=== PATIENT | female | born 1995 | race Caucasian/White ===

== ENCOUNTER 2018-02-22 17:01 | Inpatient (IN) | payer BC ==
[~2018-02-22 17:01] MED LIST: BUPIVACAINE 0.75%/DEXT (SPINAL) 2 ML INJ; OXYTOCIN 30 UNITS/LR 500 ML BAG IV
[2018-02-22] MEDS ORDERED: CEFAZOLIN 2 GM/50 ML (PMX) 50 ML IVPB (17:30)
[2018-02-22] MEDS ORDERED: OXYTOCIN 30 UNITS/LR 500 ML IV ×4 (17:30→21:30)
[2018-02-22] MEDS ORDERED: METHYLERGONOVINE 0.2 MG INJ IM ×2 (17:30)
[2018-02-22] MEDS ORDERED: CARBOPROST 250 MCG INJ IM ×2 (17:30→21:30)
[2018-02-22] MEDS: LACTATED RINGER'S 1,000 ML IV (17:30)
[2018-02-22] MEDS ORDERED: MISOPROSTOL 200 MCG TAB PR ×2 (17:30→21:30)
[2018-02-22 18:20] LABS: ADD MAN DIFF? NO
[2018-02-22 18:21] LABS: BASOPHILS % 0.2 % (0.0-2.0); EOSINOPHILS % 0.4 % (0.0-7.0); HEMOGLOBIN 8.3 g/dl (12.0-16.0); LYMPHOCYTES # 1.8 10^3/ul (0.8-2.9); LYMPHOCYTES % 21.6 % (15.0-51.0); MEAN CORPUSCULAR HEMOGLOBIN 28.1 pg (29.0-33.0); MEAN CORPUSCULAR HGB CONC 31.9 g/dl (32.0-37.0); MEAN CORPUSCULAR VOLUME 88.1 fl (82.0-101.0); MEAN PLATELET VOLUME 11.6 fl (7.4-10.4); MONOCYTE # 0.7 10^3/ul (0.3-0.9); MONOCYTES % 8.6 % (0.0-11.0); NEUTROPHIL # 5.6 10^3/ul (1.6-7.5); NEUTROPHILS % 68.8 % (39.0-77.0); PLATELET COUNT 158 10^3/UL (140-415); RED BLOOD COUNT 2.95 10^6/ul (4.20-5.40); RED CELL DISTRIBUTION WIDTH 13.9 % (11.5-14.5)
[2018-02-22 18:21] LABS: WHITE BLOOD COUNT 8.1 10^3/ul (4.8-10.8)
[2018-02-22 18:40] LABS: INR 0.95; PROTIME 12.8 Sec (11.9-14.9)
[2018-02-22 18:41] LABS: PARTIAL THROMBOPLASTIN TIME 25.1 Sec (23.0-35.0)
[2018-02-22] MEDS ORDERED: morphine SULFATE/PF (10 MG/10 ML) INJ (19:30)
[2018-02-22] MEDS ORDERED: FENTAnyl 50 MCG/ML VIAL (19:30)
[2018-02-22 19:34] LABS: RAPID PLASMA REAGIN NONREACTIVE (NR)
[2018-02-22] MEDS ORDERED: DEXAMETHASONE 4 MG/ML 1 ML INJ (19:34)
[2018-02-22] MEDS ORDERED: PHENYLephrine (100 MCG/ML) 5ML SYG (19:34)
[2018-02-22] MEDS ORDERED: ONDANSETRON 4 MG INJ (19:34)
[2018-02-22] MEDS ORDERED: OXYTOCIN 10 UNIT INJ (20:06)
[2018-02-22] MEDS ORDERED: DIPHENHYDRAMINE 50 MG INJ (20:23)
[2018-02-22] MEDS ORDERED: NALOXONE (0.4 MG/ML) INJ IV (20:30)
[2018-02-22] MEDS ORDERED: ZOLPIDEM 5 MG TAB PO (20:30)
[2018-02-22] MEDS ORDERED: HYDROmorphONE 0.5 MG/0.5 ML SYG IV (20:30)
[2018-02-22] MEDS ORDERED: ONDANSETRON 4 MG INJ IV (20:30)
[2018-02-22] MEDS: OXYTOCIN 30 UNITS/LR 500 ML IV (21:41)
[2018-02-22 21:54] LABS: HEPATITIS B SURFACE ANTIGEN NEGATIVE (NEGATIVE)
[2018-02-22] MEDS: KETOROLAC 30 MG INJ IV (22:30)
[2018-02-22] MEDS: DIPHENHYDRAMINE 50 MG INJ IV (22:30)
[2018-02-23] MEDS: HYDROmorphONE 0.5 MG/0.5 ML SYG IV (00:27)
[2018-02-23] MEDS: LACTATED RINGER'S 1,000 ML IV ×3 (03:36→14:26)
[2018-02-23] MEDS: PROMETHAZINE 25 MG TAB PO (03:37)
[2018-02-23] MEDS: ACETAMINOPHEN 500 MG TAB PO (03:38)
[2018-02-23] MEDS: KETOROLAC 30 MG INJ IV ×3 (08:31→20:11)
[2018-02-23] MEDS: LABETALOL 100 MG TAB PO (09:00)
[2018-02-23 09:04] LABS: ADD MAN DIFF? NO
[2018-02-23 09:09] LABS: HEMATOCRIT 25.8 % (37.0-47.0); HEMOGLOBIN 8.3 g/dl (12.0-16.0); LYMPHOCYTES % 7.5 % (15.0-51.0); MEAN CORPUSCULAR HEMOGLOBIN 28.3 pg (29.0-33.0); MEAN CORPUSCULAR HGB CONC 32.2 g/dl (32.0-37.0); MEAN CORPUSCULAR VOLUME 88.1 fl (82.0-101.0); MEAN PLATELET VOLUME 12.5 fl (7.4-10.4); MONOCYTE # 0.8 10^3/ul (0.3-0.9); MONOCYTES % 5.8 % (0.0-11.0); NEUTROPHIL # 11.7 10^3/ul (1.6-7.5); NEUTROPHILS % 86.2 % (39.0-77.0); PLATELET COUNT 187 10^3/UL (140-415); RED BLOOD COUNT 2.93 10^6/ul (4.20-5.40); RED CELL DISTRIBUTION WIDTH 13.7 % (11.5-14.5)
[2018-02-23 09:09] LABS: WHITE BLOOD COUNT 13.5 10^3/ul (4.8-10.8)
[2018-02-23] MEDS: LANOLIN 7 GM TUBE TOP (18:14)
[2018-02-24] MEDS: IBUPROFEN 600 MG TAB PO ×5 (00:32→23:53)
[2018-02-24] MEDS: HYDROCODONE/APAP (5/325) TAB PO ×3 (06:05→20:04)
[2018-02-24] MEDS: LABETALOL 100 MG TAB PO (09:00)
[2018-02-24] MEDS: HYDROCODONE/APAP (7.5/325) TAB PO ×2 (20:00→23:54)
[2018-02-24] MEDS: DOCUSATE SODIUM 100 MG CAP PO (20:49)
[2018-02-25] MEDS: HYDROCODONE/APAP (7.5/325) TAB PO ×3 (04:07→11:20)
[2018-02-25] MEDS: IBUPROFEN 600 MG TAB PO ×2 (06:13→11:20)
[2018-02-25] MEDS: DOCUSATE SODIUM 100 MG CAP PO (08:40)
[2018-02-25] MEDS: LABETALOL 100 MG TAB PO (08:41)
== END 2018-02-25 14:47 | disposition home or self-care (01) | DRG 786 ==
LOC: L-D 17:01 → PP1 23:36
PROVIDERS: Obstetrics & Gynecology Obstetrics
PROC: 10D00Z1 Extraction of Products of Conception, Low, Open Approach (ICD-10-PCS; principal; 2018-02-22 20:00)
DX: O45.8X3 Other premature separation of placenta, third trimester (principal); O60.14X0 Preterm labor third trimester with preterm delivery third trimester, not applicable or unspecified; K83.1 Obstruction of bile duct; O26.62 Liver and biliary tract disorders in childbirth; O10.02 Pre-existing essential hypertension complicating childbirth; O62.4 Hypertonic, incoordinate, and prolonged uterine contractions; O99.02 Anemia complicating childbirth; D64.9 Anemia, unspecified; O69.81X0 Labor and delivery complicated by cord around neck, without compression, not applicable or unspecified; O36.5930 Maternal care for other known or suspected poor fetal growth, third trimester, not applicable or unspecified; O34.219 Maternal care for unspecified type scar from previous cesarean delivery; G44.209 Tension-type headache, unspecified, not intractable; M54.2 Cervicalgia; M25.512 Pain in left shoulder; Z3A.34 34 weeks gestation of pregnancy; Z37.0 Single live birth
CPT/HCPCS: 85025; 85384; 85610; 85730; 86592; 86850; 86900; 86901; 87340; 88307; 99464